=== PATIENT | male | born 1935 | race Caucasian/White ===

== ENCOUNTER 2018-04-30 20:33 | Emergency (ER) | payer MEDICARE, OTHER ==
[~2018-04-30] VITALS: Ht 167.6 cm; Wt 72.0 kg
[2018-04-30] MEDS ORDERED: HYDROmorphone 2 MG/ML, 1ML IVPush PRN (22:00)
[2018-04-30] MEDS ORDERED: ONDANSETRON 2MG/ML, 2ML IVPush ONE (22:00)
[2018-04-30] MEDS ORDERED: LIDOCAINE 2%, 20ML ONE (22:11)
[2018-04-30] MEDS ORDERED: ONDANSETRON 2MG/ML, 2ML ONE (22:13)
[2018-04-30] MEDS ORDERED: HYDROmorphone 1 MG/ML, 1ML ONE (22:13)
--- NOTE | 2018-04-30 22:17 | NUR ---
PT MEDICATED PER EMAR
--- NOTE | 2018-04-30 22:23 | NUR ---
PT GOING TO CT
[2018-04-30 22:28] LABS: MEAN CORPUSCULAR HEMOGLOBIN 32.6 pg (27.5-34.5); MEAN CORPUSCULAR HGB CONC 34.4 g/dL (33.2-36.2); RED BLOOD COUNT 3.82 x10^6/uL (4.38-5.82); RED CELL DISTRIBUTION WIDTH 14.8 % (9.4-14.8)
[2018-04-30 22:30] LABS: INTERNATIONAL NORMALIZED RATIO 1.06 (0.93-1.1); PROTHROMBIN TIME 11.1 Seconds (9.6-11.5)
[2018-04-30 22:33] LABS: ALANINE AMINOTRANSFERASE 28 U/L (12-78); ALBUMIN 3.5 g/dL (3.4-5.0); ANION GAP 7 mmol/L (5-15); CALCIUM 8.6 mg/dL (8.5-10.1); CHLORIDE 115 mmol/L (98-107); CREATININE 0.98 mg/dL (0.7-1.3)
[2018-04-30 22:35] LABS: ALKALINE PHOSPHATASE 107 U/L (45-117); BILIRUBIN,TOTAL 0.7 mg/dL (0.2-1.0); TOTAL PROTEIN 6.3 g/dL (6.4-8.2)
[2018-04-30 22:44] LABS: BASOPHILS % (AUTO) 0 % (0-1); EOSINOPHILS # (AUTO) 0.06 x10^3/uL (0-0.4); EOSINOPHILS % (AUTO) 1 % (1-7); LYMPHOCYTES # (AUTO) 0.42 x10^3/uL (1-3.4); LYMPHOCYTES % (AUTO) 9 % (22-44); MD SCAN; MEAN PLATELET VOLUME 8.5 fL (7.4-10.4); MONOCYTES % (AUTO) 4 % (2-9); NEUTROPHILS # (AUTO) 3.94 x10^3/uL (1.8-6.8); NEUTROPHILS % (AUTO) 85 % (42-75); PLATELET COUNT 74 x10^3/uL (130-400)
[2018-04-30] MEDS ORDERED: OMNIPAQUE 350 MG/ML, 100ML BOTTLE ONE (23:03)
--- NOTE | 2018-04-30 23:15 | NUR ---
pt resting on gurney, rr even and unlabored. pt denies pain or needs att. pt on cont spo2, bp, and secured entrance monitor, vss
[2018-04-30 23:22] LABS: MICROSCOPIC NOT IND
[2018-04-30 23:25] LABS: CULTURE INDICATED? NO
--- NOTE | 2018-04-30 23:58 | NUR ---
NO CHANGE IN PATIENT STATUS. AWAITING LAB RESULTS AND DISPO. PT DENIES NEEDS ATT.
[2018-05-01 00:07] LABS: TROPONIN I < 0.015 ng/mL (0.000-0.045)
[2018-05-01 00:55] VITALS: BP 156/82
== END 2018-05-01 00:58 | disposition home or self-care (01) ==
LOC: ED 05-01 00:43
DX: R10.84 Generalized abdominal pain (principal); R18.8 Other ascites; R11.2 Nausea with vomiting, unspecified; R19.7 Diarrhea, unspecified; I10 Essential (primary) hypertension; Z90.49 Acquired absence of other specified parts of digestive tract; Z90.89 Acquired absence of other organs
CPT/HCPCS: 36415; 71045; 74177; 76705; 80053; 81003; 83605; 83690; 83880; 84484; 85025; 85610; 93005; 96374; 96375; 99284; J1170; J2405; J3490; Q9967